=== PATIENT | female | born 1985 | race Caucasian/White ===

== ENCOUNTER 2018-12-18 10:43 | Outpatient (CLI) | payer OTHER, SELFPAY ==
[2018-12-18 11:12] LABS: HCT 41.5 % (36.0-46.0); HGB 14.5 g/dL (12.0-15.5); Mean Corp. HGB Concentration 34.9 g/dL (32.0-36.0); Mean Corpuscular Hemoglobin 30.9 pg (27.0-33.0); Mean Corpuscular Volume 88.5 fL (80-95); Mean Platelet Volume 9.1 fL (8.0-11.0); Platelet Count 295 x1000/uL (130-400); RBC 4.69 m/cumm (4.00-5.20); RBC Distribution Width 11.8 % (11.7-14.6); White Blood Cell Count 8.25 k/cumm (4.4-10.8)
[2018-12-18 12:10] LABS: ALT 85 U/L (12-78); AST 35 U/L (15-37); Albumin 3.9 g/dL (3.4-5.0); Alkaline Phosphatase 74 U/L (46-116); Anion Gap 14.3 mmol/L (3-11); BUN 11 mg/dL (7-18); Bilirubin, Total 0.3 mg/dL (0.2-1.0); CO2 25.7 mmol/L (21.0-32.0); CREATININE 0.75 mg/dL (0.55-1.02); Calcium 9.3 mg/dL (8.5-10.1); Chloride 102 mmol/L (98-107); Glucose 89 mg/dL (70-100); Potassium 4.4 mmol/L (3.5-5.1); Sodium 142 mmol/L (136-145); Total Protein 7.2 g/dL (6.4-8.2)
== END 2018-12-18 11:03 ==
PROVIDERS: PCP Nurse Practitioner; Visit Provider Nurse Practitioner
DX: L29.9 Pruritus, unspecified (principal)
CPT/HCPCS: 36415; 80053; 85027; 84443

== ENCOUNTER 2019-01-01 13:23 | Outpatient (CLI) | payer OTHER, SELFPAY ==
[2019-01-01 14:55] LABS: ALT 39 U/L (12-78); AST 8 U/L (15-37); Albumin 3.6 g/dL (3.4-5.0); Alkaline Phosphatase 75 U/L (46-116); Bilirubin, Direct 0.06 mg/dL (0.00-0.20); Bilirubin, Total 0.2 mg/dL (0.2-1.0); Total Protein 7.1 g/dL (6.4-8.2)
== END 2019-01-01 13:43 ==
PROVIDERS: PCP Nurse Practitioner; Visit Provider Nurse Practitioner
DX: R74.0 Nonspecific elevation of levels of transaminase and lactic acid dehydrogenase [LDH] (principal)
CPT/HCPCS: 36415; 80076

== ENCOUNTER 2020-02-11 11:25 | Emergency (ER) | payer OTHER, SELFPAY ==
[2020-02-11 11:29] VITALS: BP 166/92; PULSE 109; TEMP 36.2; O2SAT 98
--- NOTE | 2020-02-11 11:30 | DI.RAD_ITS ---
EXAM: XR ANKLE RT COMPLETE and XR tib/fib RT CLINICAL HISTORY: pain, swollen, inverted ankle yesterday. TECHNIQUE: 2D digital imaging was performed. COMPARISON: No previous for comparison. FINDINGS: BONES: There is a minimally displaced fracture of the posterior malleolus. On the AP view of the tib ia and fibula, there is a fracture seen through the cortex of the distal metaphysis medially extendin g longitudinally and concerning for medial malleolar fracture into the ankle mortise. JOINTS: The ankle mortise is normally aligned. SOFT TISSUE: Soft tissue swelling about the ankle. IMPRESSION: Distal tibial fractures with associated soft tissue swelling. A CT scan of the right ankle should be considered for further characterization of the fractures. The findings were discussed with the emergency department on the date of the examination. DATA REPOSITORY: RADIATION DOSE DELIVERED:
--- NOTE | 2020-02-11 11:43 | ED.GENADUL_ITS ---
Discharge Plan Disposition Patient Disposition: HOME Condition: Stable Discharge Details Chief Complaint: Orthopedic Clinical Impression: Bimalleolar fracture of right ankle Primary Care Provider: Diane Monsalve ED Provider: Zack Ness Home Meds and New Rx's Prescriptions: Continued mometasone [Elocon] 0.1 % cream 1 applic TP DAILY RF: 0 sertraline 100 mg tablet 100 mg PO DAILY Qty: 90 RF: 3 ibuprofen 200 mg Tablet 600 mg PO Q6H PRNRF: 0 Discharge Instructions Instructions: Ankle Fracture (DC) Additional Instructions: Please take ibuprofen over the counter. Take 600mg by mouth every 6 hours as needed for pain. Please take acetaminophen (tylenol) - 650mg every 6 hours by mouth as needed for pain. Keep orthopedic boot in place and use crutches. No weightbearing on right ankle until cleared by orthopedics. Please contact orthopedics to arrange follow-up. Return to the ER for any worsening or new concerning symptoms. Referrals: [facility] [Provider Group] Discharge Data Discharge Date/Time-TO BE ENTERED AT DEPARTURE: 02/11/20 12:51 Medical Decision Making 35-year-old female here with inversion injury to her right ankle yesterday. Patient has a tender swollen right ankle with focal tenderness on palpation of her lateral malleolus. She also has some tenderness proximal fibula. Patient took ibuprofen just prior to arrival. Ice pack was applied. X-ray of the ankle was reviewed and interpreted by radiology: Posterior malleolus fracture X-ray of the tib-fib was reviewed and interpreted by radiology: Posterior and medial malleolar fracture I called and spoke with on-call orthopedics, Dr. Javier, he recommends orthopedic boot, crutches, nonweightbearing and outpatient follow-up with orthopedics. Results and plan discussed with patient. Usual customary discharge instructions otherwise reviewed with the patient. HPI General Mode of arrival: ambulatory . Date/Time Provider Initiated Documentation: 02/11/20 11:38 . Limitations to Documentation: no limitations . Information obtained by: patient . HPI Narrative: 35-year-old female presents with chief complaint of right ankle pain. Patient notes yesterday she was walking her dog and twisted her ankle in a ditch. Patient notes she inverted her ankle. She has moderate pain that is worse with ambulation. She has associated swelling of the ankle. She also notes some pain proximal lower leg. No other injury. No prior fracture of the ankle. Related Data Home Medications Medication Instructions Recorded Confirmed mometasone 0.1 % topical cream 1 applic TP DAILY 03/16/18 02/19/20 sertraline 100 mg tablet 100 mg PO DAILY #90 tab 12/14/19 02/19/20 ibuprofen 600 mg PO Q6H PRN 02/11/20 02/19/20 Previous Rx's Medication Instructions Recorded sertraline 100 mg tablet 100 mg PO DAILY #90 tab 12/14/19 Allergies Allergy/AdvReac Type Severity Reaction Status Date / Time No Known Allergies Allergy Verified 02/19/20 10:09 General Stated Complaint: Orthopedic JANEL: 4 Review of Systems Musculoskeletal Musculoskeletal: Reports as per HPI Integumentary/Breasts Skin/Breast: Reports other (No laceration) Neurologic Neurologic: Reports other (No numbness or tingling) [facility] Medical History (Updated 02/19/20 @ 10:10 by Argentina Kilgore RN) Anxiety Depression (Chronic 01/03/14) 01/2014: PHQ-9 11, very difficult Hidradenitis suppurativa (Acute) Tobacco use disorder (Chronic 12/09/11) pt quit on 12/22/19 Family History Father Cystic fibrosis carrier Sister Cystic fibrosis carrier Social History Smoking/Tobacco Use Status: Former Tobacco Use Quit Date: 05/13/18 Tobacco: How many years used: 11 Alcohol Intake: current Alcohol Intake frequency: a few times a month Drug use: Daily Substance use type: marijuana Adopted: No Household members: significant other Housing: house Number of Children: 0 Communication Needs: None Do you need help understanding health information?: Rarely current occupation: [employer] Pets and animals: Yes Pets and animals: cat(s) What is your relationship status?: living with partner Panel score (0-1 are the most socially isolated patients): 1 What type of physical activity do you participate in: none and walking Duration: < 15 minutes/day Frequency: 3-4 times per week Seatbelt use: always Helmet use: Yes Drive intox or ride w/intox non emergency services ambulance driver: No Water heater temp set <120 deg: Yes Working smoke detector in home: Yes Fire extinguisher in home: Yes Carbon monox detector in home: Yes Firearms in home: Yes Firearms unloaded and locked: No Do you feel safe at home: Yes Do you feel safe in your relationship?: Yes Exam Const General: cooperative and healthy appearing Orientation: alert and awake Cardio Rate: regular rate Rhythm: regular rhythm Pulses: dorsalis pedis present on the right 2+ Extrem Right lower extremity: lower leg Details: tenderness Location: of the proximal fibula; no deformity and ankle Details: tenderness Location: of the lateral malleolus, of the medial malleolus, anterolaterally and posteriorly, swelling Details: laterally and abnormal ROM Details: pain with active ROM Details: with plantar flexion, with dorsiflexion and with inversion; no lacerations Course Vital Signs Vital signs: Vital Signs Temperature 36.2 C L 02/11/20 11:29 Pulse 109 H 02/11/20 11:29 Blood Pressure 166/92 H 02/11/20 11:29 Pulse Oximetry 98 02/11/20 11:29 Temperature 36.2 C L 02/11/20 11:29 Temperature Source Temporal Artery Scan 02/11/20 11:29 Pulse 109 H 02/11/20 11:29 Respiratory Effort Non-Labored 02/11/20 11:32 Blood Pressure 166/92 H 02/11/20 11:29 Blood Pressure Position Sitting 02/11/20 11:29 Pulse Oximetry 98 02/11/20 11:29 Oxygen Delivery Method Room Air 02/11/20 11:29 Oxygen Flow Rate 0 02/11/20 11:29 Pain Level 8 02/11/20 11:34
[2020-02-11 12:45] VITALS: BP 175/91; PULSE 92; RESP 18; TEMP 36.7; O2SAT 99
== END 2020-02-11 12:51 | disposition home or self-care (01) ==
PROVIDERS: Emergency Provider Student in an Organized Health Care Education/Training Program; PCP Nurse Practitioner
DX: S82.841A Displaced bimalleolar fracture of right lower leg, initial encounter for closed fracture (principal); W17.2XXA Fall into hole, initial encounter; Y93.K1 Activity, walking an animal
CPT/HCPCS: 99284; 73590; 73610; L4361

== ENCOUNTER 2020-02-19 10:17 | Outpatient (CLI) | payer OTHER, SELFPAY ==
--- NOTE | 2020-02-19 10:15 | DI.RAD_ITS ---
EXAM: XR ANKLE RT COMPLETE CLINICAL HISTORY: f/u fracture TECHNIQUE: 2D digital imaging was performed. COMPARISON: CR XR ANKLE RT COMPLETE from 02/11/2020 FINDINGS: There is no change in the alignment of the intra-articular fracture the distal tibia. There is slig ht separation at the articular surface. Ankle mortise is not widened. No talar dome defect or dista l fibular fracture is seen. IMPRESSION: Stable appearance of distal tibial intra-articular fracture.
== END 2020-02-19 10:37 ==
PROVIDERS: PCP Nurse Practitioner; Referring Provider Nurse Practitioner; Visit Provider Orthopaedic Surgery
DX: S82.301A Unspecified fracture of lower end of right tibia, initial encounter for closed fracture (principal)
CPT/HCPCS: 73610

== ENCOUNTER 2020-02-26 11:02 | Outpatient (CLI) | payer OTHER, SELFPAY ==
--- NOTE | 2020-02-26 10:00 | DI.RAD_ITS ---
EXAM: XR ANKLE RT COMPLETE CLINICAL HISTORY: R ankle fx TECHNIQUE: COMPARISON: CR XR ANKLE RT COMPLETE from 02/19/2020 FINDINGS: Three views were obtained previously described posterior malleolar fracture again noted, no gross int erval change in alignment comparison with examination of February 18. The ankle mortise appears well maintained. IMPRESSION: RADIATION DOSE DELIVERED: Total DLP
== END 2020-02-26 11:22 ==
PROVIDERS: PCP Nurse Practitioner; Referring Provider Nurse Practitioner; Visit Provider Physician Assistant
DX: S82.891A Other fracture of right lower leg, initial encounter for closed fracture (principal)
CPT/HCPCS: 73610

== ENCOUNTER 2020-03-25 10:45 | Outpatient (CLI) | payer OTHER, SELFPAY ==
--- NOTE | 2020-03-25 09:54 | DI.RAD_ITS ---
EXAM: XR ANKLE RT COMPLETE CLINICAL HISTORY: follow up fracture. TECHNIQUE: 2D digital imaging was performed. COMPARISON: CR XR ANKLE RT COMPLETE from 02/26/2020 FINDINGS: BONES: There has been no change in alignment of the posterior malleolar fracture. No new fracture is identified. No bony destructive lesion is seen. JOINTS: The ankle mortise is normally aligned. SOFT TISSUE: Normal. IMPRESSION: Stable posterior malleolar fracture. DATA REPOSITORY: RADIATION DOSE DELIVERED:
== END 2020-03-25 11:05 ==
PROVIDERS: PCP Nurse Practitioner; Referring Provider Nurse Practitioner; Visit Provider Physician Assistant Surgical
DX: S82.891A Other fracture of right lower leg, initial encounter for closed fracture (principal)
CPT/HCPCS: 73610

== ENCOUNTER 2020-04-22 11:50 | Outpatient (CLI) | payer OTHER, SELFPAY ==
--- NOTE | 2020-04-22 09:15 | DI.RAD_ITS ---
EXAM: XR ANKLE RT COMPLETE CLINICAL HISTORY: s/p right ankle fracture TECHNIQUE: 2D digital imaging was performed. COMPARISON: CR XR ANKLE RT COMPLETE from 03/25/2020 FINDINGS: There has been no change in the alignment of the fracture through the posterior malleolus. Some soft tissue swelling remains present. There is mild disuse osteopenia.
== END 2020-04-22 12:10 ==
PROVIDERS: PCP Nurse Practitioner; Referring Provider Nurse Practitioner; Visit Provider Physician Assistant
DX: S82.891A Other fracture of right lower leg, initial encounter for closed fracture (principal)
CPT/HCPCS: 73610

== ENCOUNTER 2020-05-20 11:23 | Outpatient (CLI) | payer OTHER, SELFPAY ==
--- NOTE | 2020-05-20 11:00 | DI.RAD_ITS ---
EXAM: XR ANKLE RT COMPLETE CLINICAL HISTORY: f/u. TECHNIQUE: 2D digital imaging was performed. COMPARISON: CR XR ANKLE RT COMPLETE from 04/22/2020 FINDINGS: BONES: There has been no change in alignment of the posterior malleolar fracture. The fracture line is still well visualized. No new fracture or dislocation is present. No bony destructive lesion is seen. JOINTS: The ankle mortise is normally aligned. SOFT TISSUE: There has been a decrease in the soft tissue swelling of the ankle. IMPRESSION: Stable posterior malleolar fracture. DATA REPOSITORY: RADIATION DOSE DELIVERED:
== END 2020-05-20 11:43 ==
PROVIDERS: PCP Nurse Practitioner; Referring Provider Nurse Practitioner; Visit Provider Orthopaedic Surgery
DX: S82.891A Other fracture of right lower leg, initial encounter for closed fracture (principal)
CPT/HCPCS: 73610

== ENCOUNTER 2020-06-05 07:54 | Emergency (ER) | payer OTHER, SELFPAY ==
[2020-06-05 07:59] VITALS: BP 143/71; PULSE 76; RESP 17; TEMP 36.8; O2SAT 96
--- NOTE | 2020-06-05 08:06 | W.ED.GENAD ---
Discharge Plan Disposition Patient Disposition: HOME Condition: Stable Discharge Details Clinical Impression: Closed head injury without loss of consciousness Primary Care Provider: Diane Monsalve ED Provider: Quita Alvarado Home Meds and New Rx's Prescriptions: No Action mometasone [Elocon] 0.1 % cream 1 applic TP DAILY RF: 0 sertraline 100 mg tablet 100 mg PO DAILY Qty: 90 RF: 3 Discharge Instructions Instructions: Concussion (ED), Head Injury (ED) Additional Instructions: Follow up with primary care provider in 3-5 days. Return to ED sooner if any worsening or concerns. Increase oral fluids. Please take Tylenol or Ibuprofen with food every 4-6 hours as needed for pain and swelling. Stand Alone Forms: Work Release Referrals: Diane Monsalve, LENS MOLDER [Primary Care Provider] - Medical Decision Making 35-year-old female presents to the ED with chief complaint of closed head injury which occurred just prior to arrival. Patient states that she slipped on the ice while getting into her car, fell backwards hitting the back of her head on the running board. She does have a small hematoma noted to the right occipital scalp. No laceration. No palpable skull fracture. She has no loss of consciousness no vomiting no midline C-spine tenderness. She has a past medical history of anxiety, depression, hydradenitis suppurativa. She is unsure she is . According to the [place] CT head rules imaging is not necessary. There is no episodes of vomiting, no signs of basilar skull fractures, no subsection of open or depressed skull fracture GCS of 15. Patient is not on blood thinners no seizure after the injury. At this time we will do a urine dip and give her some Tylenol. Urine is negative. Patient discharged home with strict return instructions and instructions to follow-up with PCP. This text was generated using [employer] system, please disregard any oddities of phrase or misspellings. HPI General Mode of arrival: ambulatory. Date/Time Provider Initiated Documentation: 06/05/20 08:00. Limitations to Documentation: no limitations. Information obtained by: patient. HPI Narrative: 35-year-old female presents to the ED with chief complaint of closed head injury which occurred just prior to arrival. Patient states that she slipped on the ice while getting into her car, fell backwards hitting the back of her head on the running board. She does have a small hematoma noted to the right occipital scalp. No laceration. No palpable skull fracture. She has no loss of consciousness no vomiting no midline C-spine tenderness. She has a past medical history of anxiety, depression, hydradenitis suppurativa. She is unsure she is . Related Data Home Medications Medication Instructions Recorded Confirmed mometasone 0.1 % topical cream 1 applic TP DAILY 03/16/18 05/20/20 sertraline 100 mg tablet 100 mg PO DAILY #90 tab 12/14/19 05/20/20 Previous Rx's Medication Instructions Recorded sertraline 100 mg tablet 100 mg PO DAILY #90 tab 12/14/19 Allergies Allergy/AdvReac Type Severity Reaction Status Date / Time No Known Allergies Allergy Verified 06/05/20 08:07 General Stated Complaint: HeadInjury JANEL: 4 Review of Systems Narrative: Constitutional: Negative for weight loss, alert and oriented, well groomed, normal body habitus, appears comfortable. HEENT: Denies blurry vision, nasal discharge, sore throat, trouble swallowing. Close head injury posterior occipital scalp. Chest: Denies chest pain, palpitations, irregular rhythm, hypertension. Respiratory: Denies Shortness of breath, cough, hemoptysis. GI: Denies abdominal pain, nausea, vomiting, diarrhea, constipation. : Denies dysuria, hematuria, flank pain, rectal bleeding. Neuro: Denies dizziness, blurry vision, weakness, syncope, or facial numbness. Hematologic: Denies easy bruising, intolerance to heat or cold, hair loss. [facility] Medical History (Updated 06/05/20 @ 08:29 by Quita Alvarado) Anxiety Depression (01/03/14) 01/2014: PHQ-9 11, very difficult Hidradenitis suppurativa Tobacco use disorder (12/09/11) pt quit on 12/22/19 Family History Father Cystic fibrosis carrier Sister Cystic fibrosis carrier Social History Smoking/Tobacco Use Status: Former Tobacco Use Quit Date: 05/13/18 Tobacco: How many years used: 11 Smoking risk assessment performed?: Yes Alcohol Intake: current Alcohol Intake frequency: a few times a month Drug use: Daily Substance use type: marijuana Adopted: No Household members: significant other Housing: house Number of Children: 0 Communication Needs: None Do you need help understanding health information?: Rarely current occupation: [employer] Pets and animals: Yes Pets and animals: cat(s) What is your relationship status?: living with partner Panel score (0-1 are the most socially isolated patients): 1 What type of physical activity do you participate in: none and walking Duration: < 15 minutes/day Frequency: 3-4 times per week Seatbelt use: always Helmet use: Yes Drive intox or ride w/intox hazardous materials driver: No Water heater temp set <120 deg: Yes Working smoke detector in home: Yes Fire extinguisher in home: Yes Carbon monox detector in home: Yes Firearms in home: Yes Firearms unloaded and locked: No Do you feel safe at home: Yes Do you feel safe in your relationship?: Yes Exam Narrative Exam Narrative: Constitutional: Alert and oriented x3. Appears stated age. Normal body habitus. Head: Normocephalic, small 2 cm diameter right occipital scalp hematoma noted. Eyes: Pupils PERRLA, Red reflex noted, EOM's intact. Eyelids symmetrical without lesions, discharge, or swelling. ENT: Bilateral TM's WNL, no hemotympanum bilaterally, external ear normal to inspection, no mastoid TTP, swelling, or erythema, Nasal turbinates WNL, no septal hematoma, no nasal discharge. Normal dentition, Posterior pharynx WNL, no exudate. Chest: RRR, Normal S1, S2, distal pulses intact. Resp: Lungs clear to auscultation bilaterally, no wheezes, rales, or rhonchi. Musculoskeletal: Normal gait, 5/5 strength to all four extremities. No midline C-spine tenderness with palpation. No crepitus no step-off. Skin: No suspicious rashes or lesions. Capillary refill less than 2 sec. Neurologic: Cranial nerves II-XII intact. Alert and oriented x 3. DTR's intact. Hematologic/Lymphatic: No ecchymosis, no lymphadenopathy. Course Vital Signs Vital signs: Vital Signs Temperature 36.8 C 06/05/20 07:59 Pulse 76 06/05/20 07:59 Respiratory Rate 17 06/05/20 07:59 Blood Pressure 143/71 H 06/05/20 07:59 Pulse Oximetry 96 06/05/20 07:59 Temperature 36.8 C 06/05/20 07:59 Temperature Source Temporal Artery Scan 06/05/20 07:59 Pulse 76 06/05/20 07:59 Respiratory Rate 17 06/05/20 07:59 Respiratory Effort Non-Labored 06/05/20 08:04 Respiratory Depth Normal 06/05/20 08:04 Respiratory Pattern Normal 06/05/20 08:04 Blood Pressure 143/71 H 06/05/20 07:59 Blood Pressure Position Sitting 06/05/20 07:59 Pulse Oximetry 96 06/05/20 07:59 Oxygen Delivery Method Room Air 06/05/20 07:59 Oxygen Flow Rate 0 06/05/20 07:59 Pain Level 7 06/05/20 07:59
[2020-06-05] MEDS: Acetaminophen 500 MG TAB PO (08:14)
[2020-06-05] MEDS: Ondansetron O.D.T. 4 MG TABEF PO (08:15)
== END 2020-06-05 08:33 | disposition home or self-care (01) ==
PROVIDERS: Emergency Provider Registered Nurse Emergency; PCP Nurse Practitioner
DX: S06.0X0A Concussion without loss of consciousness, initial encounter (principal); S00.03XA Contusion of scalp, initial encounter; V47.4XXA Person boarding or alighting a car injured in collision with fixed or stationary object, initial encounter; W00.0XXA Fall on same level due to ice and snow, initial encounter
CPT/HCPCS: 81025; 99283

== ENCOUNTER 2020-08-28 02:55 | Outpatient (CLI) | payer OTHER, SELFPAY ==
[2020-08-29 14:49] LABS: COVID-19 RT-PCR UVMMC Result Negative (Negative)
== END 2020-08-28 02:56 | disposition home or self-care (01) ==
LOC: LBO 02:56
PROVIDERS: PCP Nurse Practitioner; Visit Provider Nurse Practitioner
DX: Z20.822 Contact with and (suspected) exposure to COVID-19 (principal)
CPT/HCPCS: U0003

== ENCOUNTER 2020-10-09 02:09 | Outpatient (CLI) | payer OTHER, SELFPAY ==
[2020-10-09 09:12] LABS: HCT 42.1 % (36.0-46.0); HGB 14.6 g/dL (11.2-15.7); MCHC 34.7 % (32.0-36.0); MCV 89.4 fL (80-95); MPV 9.1 fL (8.0-11.0); Platelet Count 308 10^3/uL (130-400); RBC 4.71 10^6/uL (3.93-5.22); RDW 11.4 % (11.7-14.6); WBC 8.49 10^3/uL (4.4-10.8)
[2020-10-09 09:55] LABS: ALT 58 U/L (14-59); AST 25 U/L (15-37); Alkaline Phosphatase 82 U/L (46-116); BUN 15 mg/dL (7-18); Bilirubin, Total 0.2 mg/dL (0.2-1.0); CREATININE 0.8 mg/dL (0.55-1.02); Calcium 9.1 mg/dL (8.5-10.1); Calculated LDL 146 mg/dL (<100); Chloride 102 mmol/L (98-107); Cholesterol 207 mg/dL (<200); Glucose 107 mg/dL (74-106); HDL Cholesterol 43 mg/dL (40-60); Potassium 4.7 mmol/L (3.5-5.1); Sodium 142 mmol/L (136-145); Total Protein 7.6 g/dL (6.4-8.2); Triglyceride 92 mg/dL (<150)
[2020-10-10 09:31] LABS: HBs Antibody, Quant 7.5 mIU/mL (See Note); Hepatitis B Surface Ab Negative (See Note)
[2020-10-10 10:15] LABS: HIV-1/2 Ag & Ab Screen Negative (Negative)
[2020-10-10 10:33] LABS: Hepatitis C Ab w Rflx HCV PCR Negative (Negative)
== END 2020-10-09 02:10 | disposition home or self-care (01) ==
LOC: LBO 02:09
PROVIDERS: PCP Nurse Practitioner; Visit Provider Nurse Practitioner
DX: F33.9 Major depressive disorder, recurrent, unspecified (principal); Z13.220 Encounter for screening for lipoid disorders; Z11.59 Encounter for screening for other viral diseases; Z11.4 Encounter for screening for human immunodeficiency virus [HIV]; Z00.00 Encounter for general adult medical examination without abnormal findings
CPT/HCPCS: 36415; 80053; 80061; 85027; 86706; 86803; 87389

== ENCOUNTER 2020-10-14 12:51 | Outpatient (REF) | payer OTHER, SELFPAY ==
--- NOTE | 2020-10-14 11:45 | PAPFT_PTH ---
PATIENT: Trina Chris LOC: [facility] U#:[id number] AGE/SX: 35/F ROOM: RE10/14/[address]: EDISON Armendariz : 1985 BED: DIS: 10/14/2020 SPEC #: [id number] RECD: 10/14/20 13:11 STATUS: TREE REQ #: [id number] REGGIE: 10/14/20 11:[address]: Cheyanne Salazar DEPT: [facility] Cytology RECD BY: Shani Mead ENTERED: 10/14/20 13:12 SP TYPE: PAPFT OTHR DR: Diane Monsalve APRN Tissues: 1 - CX/ENDOCX FOR PAP SMEARS Procedures: PAP THIN PREP/UVM Screening HPV DNA PROBE Comments: [id number]
== END 2020-10-14 12:52 | disposition home or self-care (01) ==
LOC: LBN 12:51
PROVIDERS: PCP Nurse Practitioner; Visit Provider Nurse Practitioner Family
DX: Z12.4 Encounter for screening for malignant neoplasm of cervix (principal); Z11.51 Encounter for screening for human papillomavirus (HPV)
CPT/HCPCS: 88142; 87624

== ENCOUNTER 2020-11-03 09:02 | Outpatient (CLI) | payer OTHER, SELFPAY ==
[2020-11-04 11:26] LABS: COVID-19 RT-PCR UVMMC Result Positive (Negative)
== END 2020-11-03 09:03 | disposition home or self-care (01) ==
LOC: LBO 09:02
PROVIDERS: PCP Nurse Practitioner; Visit Provider Nurse Practitioner
DX: Z20.822 Contact with and (suspected) exposure to COVID-19 (principal)
CPT/HCPCS: U0003

== ENCOUNTER 2021-04-06 15:22 | Outpatient (CLI) | payer OTHER, SELFPAY ==
[2021-04-06 16:21] LABS: HCG Quant, Pregnancy 4670 mIU/mL (1-3)
[2021-04-06 16:42] LABS: Hemoglobin A1C 5.3 % (<5.7)
[2021-04-06 17:48] LABS: Anion Gap 7.5 mmol/L (3-11); BUN 10 mg/dL (7-18); CO2 29.5 mmol/L (21.0-32.0); CREATININE 0.6 mg/dL (0.55-1.02); Calcium 9.3 mg/dL (8.5-10.1); Chloride 103 mmol/L (98-107); Glucose 68 mg/dL (74-106); Potassium 4.2 mmol/L (3.5-5.1); Sodium 140 mmol/L (136-145)
== END 2021-04-06 15:23 | disposition home or self-care (01) ==
LOC: LBO 15:23
PROVIDERS: PCP Nurse Practitioner; Visit Provider Obstetrics & Gynecology Gynecology
DX: O03.9 Complete or unspecified spontaneous abortion without complication; R79.9 Abnormal finding of blood chemistry, unspecified
CPT/HCPCS: 36415; 80048; 86900; 86901; 83036; 84702

== ENCOUNTER 2021-04-23 12:21 | Outpatient (CLI) | payer OTHER, SELFPAY ==
[2021-04-23 13:31] LABS: HCG Quant, Pregnancy 282 mIU/mL (1-3)
== END 2021-04-23 12:22 | disposition home or self-care (01) ==
LOC: LBO 12:21
PROVIDERS: PCP Nurse Practitioner; Visit Provider Obstetrics & Gynecology
DX: O03.9 Complete or unspecified spontaneous abortion without complication (principal)
CPT/HCPCS: 36415; 84702

== ENCOUNTER 2021-04-30 02:07 | Outpatient (CLI) | payer OTHER, SELFPAY ==
[2021-04-30 08:38] LABS: HCG Quant, Pregnancy 71 mIU/mL (1-3)
== END 2021-04-30 02:08 | disposition home or self-care (01) ==
LOC: LBO 02:07
PROVIDERS: PCP Nurse Practitioner; Visit Provider Obstetrics & Gynecology
DX: O03.9 Complete or unspecified spontaneous abortion without complication (principal)
CPT/HCPCS: 36415; 84702

== ENCOUNTER 2021-05-08 09:40 | Outpatient (CLI) | payer OTHER, SELFPAY ==
[2021-05-08 16:45] LABS: HCG Quant, Pregnancy 12 mIU/mL (1-3)
== END 2021-05-08 09:41 | disposition home or self-care (01) ==
LOC: LBO 09:41
PROVIDERS: PCP Nurse Practitioner; Visit Provider Obstetrics & Gynecology
DX: O03.9 Complete or unspecified spontaneous abortion without complication (principal)
CPT/HCPCS: 36415; 84702

== ENCOUNTER 2022-11-25 12:04 | Outpatient (REF) | payer OTHER, SELFPAY ==
[2022-11-25 15:39] LABS: COVID-19 PCR Negative (Negative); Influenza A PCR Negative (Negative); Influenza B PCR Negative (Negative); RSV PCR Negative (Negative)
[2022-11-25 15:47] LABS: Source Nasopharynx
== END 2022-11-25 12:05 | disposition home or self-care (01) ==
LOC: LBN 12:04
PROVIDERS: PCP Nurse Practitioner; Referring Provider Nurse Practitioner Family; Visit Provider Nurse Practitioner Family
DX: J02.9 Acute pharyngitis, unspecified (principal); R05.8 Other specified cough; R50.9 Fever, unspecified; M79.18 Myalgia, other site; Z20.822 Contact with and (suspected) exposure to COVID-19
CPT/HCPCS: 87637

== ENCOUNTER 2022-11-28 11:36 | Emergency (ER) | payer OTHER, SELFPAY ==
[2022-11-28 11:52] VITALS: BP 120/83; PULSE 93; RESP 18; TEMP 37.2; O2SAT 99
--- NOTE | 2022-11-28 12:29 | W.ED.GENAD ---
Discharge Plan Disposition Patient Disposition: Home Discharge Details Clinical Impression: Pharyngitis, URI, acute Primary Care Provider: Diane Monsalve ED Provider: Shani Yoder Home Meds and New Rx's Prescriptions: New prednisone 20 mg tablet 40 mg PO DAILY Qty: 6 0RF Continued trazodone 50 mg tablet 50 mg PO QHS PRN (Reason: sleep) Qty: 30 3RF bupropion HCl 300 mg tablet extended release 24 hr See Rx Instructions .ROUTE .COMPLEX Qty: 90 3RF Dose Instruction: TAKE ONE TABLET BY MOUTH EVERY MORNING Rx Instructions: TAKE ONE TABLET BY MOUTH EVERY MORNING sertraline 100 mg tablet 200 mg PO DAILY Qty: 180 3RF mometasone 0.1 % cream 1 applic TP DAILY Qty: 45 3RF Discharge Instructions Instructions: Pharyngitis (ED), Upper Respiratory Infection (ED) Additional Instructions: Take Tylenol as needed for pain Take the prednisone daily, you received a dose of Decadron today, do not take the prednisone until tomorrow Return earlier should you have difficulty swallowing, persistent pain, or with any new or worsening complaints Referrals: Diane Monsalve, BILLET DRILLER [Primary Care Provider] - Discharge Data Discharge Date/Time-TO BE ENTERED AT DEPARTURE: 11/28/22 12:49 Medical Decision Making Patient is alert, cooperative, no acute distress She has mild erythema to her oropharynx suspect her symptoms are related to upper respiratory infection She has already had a negative strep, flu a test Lower suspicion for mononucleosis, no abdominal tenderness, no fever, and the presence of upper respiratory symptoms We will place on steroid taper for discomfort No indication for antibiotics at this time Return precautions reviewed and patient expressed understanding Medical Records Medical records reviewed: Yes I reviewed the patient's medical records. Lab Data Lab results reviewed: Yes I reviewed the patient's lab results. HPI General Date/Time Provider Initiated Documentation: 11/28/22 12:15. HPI Narrative: This 37-year-old female presents with sore throat for the past 5 days. Was at [facility] and had strep and flu were performed with which were negative. He denies globus sensation. Denies trismus. Able to eat and drink with discomfort. States she is also had upper respiratory symptoms including cough and runny nose associated with her sore throat. The sore throat is essentially why she presents today. Denies any drooling. Related Data Home Medications Medication Instructions Recorded Confirmed trazodone 50 mg tablet 50 mg PO QHS PRN sleep #30 tabs 12/17/21 11/28/22 bupropion HCl 300 mg 24 hr tablet, See Rx Instructions .Route 07/20/22 11/28/22 extended release .COMPLEX #90 tabs mometasone 0.1 % topical cream 1 applic topical DAILY eczema both 07/20/22 11/28/22 ears #45 grams sertraline 100 mg tablet 200 mg PO DAILY #180 tabs 07/20/22 11/28/22 prednisone 20 mg tablet 40 mg PO DAILY #6 tabs 11/28/22 Previous Rx's Medication Instructions Recorded trazodone 50 mg tablet 50 mg PO QHS PRN sleep #30 tabs 12/17/21 bupropion HCl 300 mg 24 hr tablet, See Rx Instructions .Route 07/20/22 extended release .COMPLEX #90 tabs mometasone 0.1 % topical cream 1 applic topical DAILY eczema both 07/20/22 ears #45 grams sertraline 100 mg tablet 200 mg PO DAILY #180 tabs 07/20/22 prednisone 20 mg tablet 40 mg PO DAILY #6 tabs 11/28/22 Allergies Allergy/AdvReac Type Severity Reaction Status Date / Time No Known Allergies Allergy Verified 11/25/22 11:20 General Stated Complaint: Sorethroat JANEL: 4 PFSH All Active Problems (Updated 11/28/22 @ 12:32 by MYRANDA Montano) Pharyngitis (Acute) URI, acute (Acute) Miscarriage (Acute) Positive home test (Acute) SOB (shortness of breath) (Acute) Abnormal blood chemistry (Acute) Routine medical exam (Acute) Attempting to conceive (Acute) Screening for cholesterol level (Acute) Screening for viral disease (Acute) Tobacco use disorder (Chronic 12/09/11) pt quit on 12/22/19 Depression (Chronic 01/03/14) 01/2014: PHQ-9 11, very difficult Hidradenitis suppurativa (Acute) Chronic eczematous otitis externa of both ears (Acute) Eczema (Acute 07/26/13) 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) Chronic otitis externa (Chronic 07/26/13) Surveillance of contraceptive pill (Acute 08/24/11) Anxiety (Acute 03/09/13) Acute otitis externa of both ears (Acute 05/22/15) Medical History (Updated 11/28/22 @ 12:32 by MYRANDA Montano) Anxiety Family History Father Cystic fibrosis carrier Cancer Bileduct Cancer--- Sister Cystic fibrosis carrier Anxiety Depression Mother Alcohol abuse Social History Smoking/Tobacco Use Status: Former Tobacco Use Quit Date: 05/13/18 Tobacco: How many years used: 10 Smoking risk assessment performed?: Yes Alcohol Intake: current Alcohol Intake frequency: a few times a week Drug use: Daily Substance use type: marijuana Details: Several Days a week Adopted: No Caregiver/Support person: No Foster care: No Household members: significant other Housing: house Number of Children: 0 Communication Needs: None Education Level: college Do you need help understanding health information?: Rarely current occupation: [employer] Pets and animals: Yes Pets and animals: cat(s) Sexually active: Yes Do you think of yourself as: straight/heterosexual Current gender identity: female What is your relationship status?: living with partner How often do you talk on the phone with friends or family?: three or more times per week How often do you get together with friends or relatives?: twice per week How often do you attend pentecostal or druze services?: decline to answer Do you belong to any clubs or organized social groups?: no Panel score (0-1 are the most socially isolated patients): 2 What type of physical activity do you participate in: none and walking Duration: < 15 minutes/day Frequency: 3-4 times per week Neelima/Caodaism: None Special neelima needs: No Seatbelt use: always Helmet use: Yes Helmet use: always Drive intox or ride w/intox milk delivery driver: No Water heater temp set <120 deg: Yes Working smoke detector in home: Yes Fire extinguisher in home: Yes Carbon monox detector in home: Yes Firearms in home: Yes Firearms unloaded and locked: No Do you feel safe at home: Yes Do you feel safe in your relationship?: Yes Exam Narrative Exam Narrative: Uvula midline, oropharynx patent, no trismus, erythema, no tonsillar exudates, no obvious abscess, maintaining secretions Neck Other: No meningismus Resp Effort & Inspection: normal respiratory effort Course Vital Signs Vital signs: Vital Signs Temperature 37.2 C 11/28/22 11:52 Pulse 93 H 11/28/22 11:52 Respiratory Rate 18 11/28/22 11:52 Blood Pressure 120/83 11/28/22 11:52 Pulse Oximetry 99 11/28/22 11:52 Temperature 37.2 C 11/28/22 11:52 Temperature Source Oral 11/28/22 11:52 Pulse 93 H 11/28/22 11:52 Respiratory Rate 18 11/28/22 11:52 Respiratory Effort Normal, Non-Labored 11/28/22 11:55 Blood Pressure 120/83 11/28/22 11:52 Blood Pressure Position Sitting 11/28/22 11:52 Pulse Oximetry 99 11/28/22 11:52 Oxygen Delivery Method Room Air 11/28/22 11:52 Oxygen Flow Rate 0 11/28/22 11:52 Pain Level 8 11/28/22 11:52
[2022-11-28] MEDS: Dexamethasone 10 MG/ML VIAL PO (12:49)
== END 2022-11-28 12:49 | disposition home or self-care (01) ==
PROVIDERS: Emergency Provider Physician Assistant; PCP Nurse Practitioner
DX: J06.9 Acute upper respiratory infection, unspecified (principal); J02.9 Acute pharyngitis, unspecified
CPT/HCPCS: 99283; 99284; J1100

== ENCOUNTER 2022-12-21 15:36 | Outpatient (REF) | payer OTHER, SELFPAY ==
--- NOTE | 2022-12-21 15:00 | PAPFT_PTH ---
PATIENT: Trina Chris LOC: [facility] U#:[id number] AGE/SX: 37/F ROOM: RE12/21/[address]: Sofia Munoz MD : [id number] BED: DIS: 12/21/2022 SPEC #: [id number] RECD: 12/21/22 17:44 STATUS: TREE REReggie #: [id number] REGGIE: 12/21/22 15:[address]: Allison Wynn DEPT: [facility] Cytology RECD BY: Shani Mead ENTERED: 12/21/22 17:44 SP TYPE: PAPFT SIS DR: Diane Monsalve APRN Tissues: 1 - CX/ENDOCX FOR PAP SMEARS Procedures: PAP THIN PREP/UVM Screening HPV DNA PROBE Comments: [id number] (CHLAMYDIA/GC)
[2022-12-22 16:24] LABS: Chlamydia Result Negative (Negative); GC Result Negative (Negative)
== END 2022-12-21 15:37 | disposition home or self-care (01) ==
LOC: LBN 15:36
PROVIDERS: Advanced Practice Midwife; PCP Nurse Practitioner; Visit Provider Obstetrics & Gynecology
DX: Z11.3 Encounter for screening for infections with a predominantly sexual mode of transmission (principal); Z12.4 Encounter for screening for malignant neoplasm of cervix; Z11.51 Encounter for screening for human papillomavirus (HPV)
CPT/HCPCS: 87491; 87591; 88142; 87624

== ENCOUNTER 2022-12-29 02:36 | Outpatient (CLI) | payer OTHER, SELFPAY ==
[2022-12-31 10:14] LABS: Syphilis Serology (RPR) Negative (Negative)
[2022-12-31 11:09] LABS: Hepatitis C Ab w Rflx HCV PCR Negative (Negative)
[2022-12-31 11:11] LABS: HIV-1/2 Ag & Ab Screen Negative (Negative)
== END 2022-12-29 02:37 | disposition home or self-care (01) ==
LOC: LBO 02:36
PROVIDERS: PCP Nurse Practitioner; Visit Provider Obstetrics & Gynecology
DX: Z11.3 Encounter for screening for infections with a predominantly sexual mode of transmission (principal)
CPT/HCPCS: 36415; 86803; 87389; 86592

== ENCOUNTER 2023-06-17 13:16 | Emergency (ER) | payer OTHER, SELFPAY ==
[2023-06-17 13:18] VITALS: BP 174/108; PULSE 89; RESP 22; TEMP 36.6; O2SAT 98
--- NOTE | 2023-06-17 13:45 | DI.CT_ITS ---
Exam(s) CT NECK W EXAM: CT NECK W CLINICAL HISTORY: left neck swelling, sudden onset, tender. TECHNIQUE: Imaging Protocol: Axial computed tomography images with coronal and sagittal reformatted images were created and reviewed CONTRAST MATERIAL: Intravenous: Omnipaque 350 Contrast volume:100 ml contrast COMPARISON: No exams were available for comparison FINDINGS: Parotids: Marked swelling of the left parotid gland. No evidence of abscess. No calcifications in t he parotid gland or along the course of the parotid duct. Submandibular glands: Normal. Thyroid gland: Normal. Lymph nodes: Mildly enlarged, reactive lymph nodes on the left side of the neck.. Carotids arteries: No significant stenosis or dissection. Vertebral arteries: No significant stenosis or dissection. Soft tissues: The floor the mouth is unremarkable. The tonsils and adenoids are unremarkable. The epiglottis and vocal cords are within normal limits. Lungs: Images through both lung apices are unremarkable. Bones: Unremarkable. Visualized portions of the brain and orbits: Unremarkable. Sinuses and mastoids: Clear. IMPRESSION: Diffusely inflamed parotid gland without focal abscess or calcification. Findings called to Dr. Ness of the emergency department. RADIATION DOSE DELIVERED: Total DLP DATA REPOSITORY: All CT scans at this facility are submitted to the National Radiology Data Registry (NRDR) Dose Index Registry (DIR) with the [employer] (ACR). RADIATION OPTIMIZATION: All CT scans at this facility use at least one of these dose optimization te chniques: automated exposure control; mA and/or kV adjustment per patient size (includes targeted exa ms where dose is matched to clinical indication); or iterative reconstruction.
--- NOTE | 2023-06-17 14:06 | ED.GENADUL_ITS ---
Discharge Plan Disposition Patient Disposition: Home Condition: Stable Discharge Details Clinical Impression: Acute parotitis Primary Care Provider: Diane Monsalve ED Provider: Zack Ness Home Meds and New Rx's Prescriptions: New amoxicillin-pot clavulanate 875-125 mg tablet 1 tab PO BID Qty: 27 0RF Continued trazodone 50 mg tablet 50 mg PO QHS PRN (Reason: sleep) Qty: 30 3RF mometasone 0.1 % cream 1 applic TP DAILY Qty: 45 3RF triamcinolone acetonide 0.1 % cream 1 applic topical BID Qty: 30 4RF betamethasone dipropionate 0.05 % cream 1 applic topical DAILY PRN (Reason: skin irritation) Qty: 45 1RF bupropion HCl 300 mg tablet extended release 24 hr See Rx Instructions .ROUTE .COMPLEX Qty: 90 3RF Dose Instruction: TAKE ONE TABLET BY MOUTH EVERY MORNING Rx Instructions: TAKE ONE TABLET BY MOUTH EVERY MORNING sertraline 100 mg tablet 200 mg PO DAILY Qty: 180 3RF Discharge Instructions Instructions: Sialoadenitis (ED) Additional Instructions: Please use sour candies 6 times a day. Take antibiotic as prescribed. Apply warm compresses regularly to your face. If symptoms do not improve as expected over the next week, please follow-up with shearer screen measurer and trimmer. Return to the ER immediately for any worsening or new concerning symptoms. Please note your blood pressure was elevated today. Please follow-up with your primary care physician for recheck of blood pressure. If blood pressure remains elevated, additional diagnostic testing and treatment may be necessary. Referrals: [facility] [Provider Group] Diane Monsalve NP [Primary Care Provider] - Medical Decision Making 1412 --38-year-old female presents with sudden onset of left neck swelling. Airway intact. No purulent discharge. No overlying erythema. Exam consistent with parotitis although timing seems atypical. Plan to obtain CT of the neck to assess for deep space infection versus vascular etiology versus parotid inflammation. I will give secretagogues to see if symptoms improve. 1500 --CT of the neck was interpreted by radiology: Diffusely inflamed parotid gland without focal abscess or calcification. Labs reviewed and nondiagnostic. No leukocytosis. Patient reassessed and has not had any worsening of swelling. She does continue to have pain. I will give acetaminophen IV and ibuprofen. -- Case discussed with ENT Dr. Lopez: Discussed ED presentation and course including diagnostics. He recommends treatment with sour candy secretagogue, Augmentin, and warm compresses. He recommends discharge and outpatient follow- up as necessary. Discharge plan discussed with the patient. Usual and customary discharge instructions reviewed. Lab Data Lab results reviewed: Yes I reviewed the patient's lab results. Labs: Laboratory Tests Range/Units 06/17/23 14:07 WBC (4.4-10.8) 10^3/uL 9.44 RBC (3.93-5.22) 10^6/uL 4.70 Hgb (11.2-15.7) g/dL 14.2 Hct (36.0-46.0) % 41.6 MCV (80-95) fL 89 MCH (27.0-33.0) pg 30.2 MCHC (32.0-36.0) % 34.1 RDW (11.7-14.6) % 11.6 L Plt Count (130-400) 10^3/uL 305 MPV (8.0-11.0) fL 8.8 Immature Gran % 0.3 Neutrophils % 69.1 Lymphocytes % 23.8 Monocytes % 5.0 Eosinophils % 1.4 Basophils % 0.4 Nucleated RBC % (0.0-0.3) % 0.0 Absolute Neutrophils (1.2-6.7) 10^3/uL 6.52 Absolute Lymphocytes (1.2-3.4) 10^3/uL 2.25 Absolute Monocytes (0.1-0.8) 10^3/uL 0.47 Absolute Eosinophils (0.0-0.7) 10^3/uL 0.13 Absolute Basophils (0.0-0.2) 10^3/uL 0.04 Sodium (136-145) mmol/L 139 Potassium (3.5-5.1) mmol/L 3.9 Chloride (98-107) mmol/L 103 Carbon Dioxide (21.0-32.0) mmol/L 26.6 Anion Gap (3-11) mmol/L 9.4 BUN (7-18) mg/dL 15 Creatinine (0.55-1.02) mg/dL 0.8 Est GFR (CKD-EPI 2020) (mL/min/1.73m2) 97.87 Glucose (74-106) mg/dL 95 Calcium (8.5-10.1) mg/dL 9.2 Total Bilirubin (0.2-1.0) mg/dL 0.3 AST (15-37) U/L 17 ALT (14-59) U/L 29 Alkaline Phosphatase (46-116) U/L 70 Total Protein (6.4-8.2) g/dL 7.5 Albumin (3.4-5.0) g/dL 3.8 HPI General Mode of arrival: ambulatory . Date/Time Provider Initiated Documentation: 06/17/23 13:26 . Limitations to Documentation: no limitations . Information obtained by: patient . HPI Narrative: 38-year-old female presents with chief complaint of left neck swelling. Patient notes she was eating lunch today and had sudden onset of left lateral face/upper neck swelling. She does not feel she had any swelling prior to this sudden onset. She states while she was eating she felt as though there was a tingling inside of her face similar to when she eats sour food and then developed the severe swelling. Food she was consuming at the time was chicken and spinach sandwich. No other swelling, rash or shortness of breath. Patient does note recent discomfort in her left ear over the past week. Related Data Home Medications Medication Instructions Recorded Confirmed trazodone 50 mg tablet 50 mg PO QHS PRN sleep #30 tabs 12/17/21 06/17/23 mometasone 0.1 % topical cream 1 applic topical DAILY eczema both 07/20/22 06/17/23 ears #45 grams triamcinolone acetonide 0.1 % 1 applic topical BID #30 grams 04/22/23 06/17/23 topical cream betamethasone dipropionate 0.05 % 1 applic topical DAILY PRN skin 06/13/23 06/17/23 topical cream irritation #45 grams bupropion HCl 300 mg 24 hr tablet, See Rx Instructions .Route 06/13/23 06/17/23 extended release .COMPLEX #90 tabs sertraline 100 mg tablet 200 mg (2 x 100 mg) PO DAILY #180 06/13/23 06/17/23 tabs amoxicillin 875 mg-potassium 1 tab PO BID #27 tabs 06/17/23 clavulanate 125 mg tablet Previous Rx's Medication Instructions Recorded trazodone 50 mg tablet 50 mg PO QHS PRN sleep #30 tabs 12/17/21 mometasone 0.1 % topical cream 1 applic topical DAILY eczema both 07/20/22 ears #45 grams triamcinolone acetonide 0.1 % 1 applic topical BID #30 grams 04/22/23 topical cream betamethasone dipropionate 0.05 % 1 applic topical DAILY PRN skin 06/13/23 topical cream irritation #45 grams bupropion HCl 300 mg 24 hr tablet, See Rx Instructions .Route 06/13/23 extended release .COMPLEX #90 tabs sertraline 100 mg tablet 200 mg (2 x 100 mg) PO DAILY #180 06/13/23 tabs amoxicillin 875 mg-potassium 1 tab PO BID #27 tabs 06/17/23 clavulanate 125 mg tablet Allergies Allergy/AdvReac Type Severity Reaction Status Date / Time No Known Allergies Allergy Verified 06/17/23 13:22 General Stated Complaint: FacialProb JANEL: 3 Review of Systems All systems reviewed & are unremarkable except as noted in HPI and below Constitutional Constitutional: Denies fever(s) ENT Ears, Nose, Mouth, and Throat: Reports as per HPI Psychiatric Psychiatric: Reports anxiety PFSH All Active Problems (Updated 06/17/23 @ 15:46 by Zack Ness MD) Acute parotitis (Acute) Eczema of both external ears (Acute) Depression (Chronic 01/03/14) 01/2014: PHQ-9 11, very difficult 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) Anxiety (Acute 03/09/13) Medical History Pharyngitis Attempting to conceive Hidradenitis suppurativa Chronic eczematous otitis externa of both ears Tobacco use disorder (12/09/11) pt quit on 12/22/19 Family History Father Cystic fibrosis carrier Cancer Bileduct Cancer--- Sister Cystic fibrosis carrier Anxiety Depression Mother Alcohol abuse Social History Smoking/Tobacco Use Status: Current every day Tobacco Type: cigarettes Tobacco: How many years used: 10 Smoking risk assessment performed?: Yes Alcohol Intake: current Alcohol Intake frequency: a few times a week Drug use: Daily Substance use type: marijuana Details: Several Days a week Adopted: No Caregiver/Support person: No Foster care: No Household members: significant other Housing: house Number of Children: 0 Communication Needs: None Education Level: college Do you need help understanding health information?: Rarely current occupation: [employer] Pets and animals: Yes Pets and animals: cat(s) Sexually active: Yes Do you think of yourself as: straight/heterosexual Current gender identity: female What is your relationship status?: living with partner How often do you talk on the phone with friends or family?: three or more times per week How often do you get together with friends or relatives?: twice per week How often do you attend religious or latter day services?: decline to answer Do you belong to any clubs or organized social groups?: no Panel score (0-1 are the most socially isolated patients): 2 What type of physical activity do you participate in: none and walking Duration: < 15 minutes/day Frequency: 3-4 times per week Neelima/Oriental Orthodox: None Special neelima needs: No Seatbelt use: always Helmet use: Yes Helmet use: always Drive intox or ride w/intox lyft driver: No Water heater temp set <120 deg: Yes Working smoke detector in home: Yes Fire extinguisher in home: Yes Carbon monox detector in home: Yes Firearms in home: Yes Firearms unloaded and locked: No Do you feel safe at home: Yes Do you feel safe in your relationship?: Yes Additional Social history: significant other at bedside History History 1 Para 0 Hx # Term Pregnancies Multiple births Hx # Pregnancies Ectopic pregnancies AB induced Hx Number of Living Children 0 AB spontaneous 1 Exam Const General: cooperative Orientation: alert HENMT Head: atraumatic Mouth: oral mucosae normal and moist mucous membranes Teeth and gingiva: dentition normal Throat: posterior oropharynx normal and uvula midline Eyes Conjunctivae: normal conjunctivae Sclera: normal sclerae Neck Neck: full ROM, trachea midline and supple Other: Left anterior lateral upper neck swelling and tender to palpation with no erythema Resp Auscultation: clear to auscultation bilaterally, no rales, no rhonchi and no wheezes Cardio Rate: regular rate and not tachycardic Rhythm: regular rhythm Skin General skin exam: no rashes or lesions noted Neuro General: patient alert, patient awake and tone normal Psych Appearance: grossly normal Mental Status: mental status grossly normal Affect: anxious affect Course Vital Signs Vital signs: Vital Signs Temperature 36.6 C 06/17/23 13:18 Pulse 89 06/17/23 13:18 Respiratory Rate 22 06/17/23 13:18 Blood Pressure 174/108 H 06/17/23 13:18 Pulse Oximetry 98 06/17/23 13:18 Temperature 36.6 C 06/17/23 13:18 Temperature Source Skin 06/17/23 13:18 Pulse 89 06/17/23 13:18 Respiratory Rate 22 06/17/23 13:18 Respiratory Effort Normal, Non-Labored 06/17/23 13:24 Blood Pressure 174/108 H 06/17/23 13:18 Blood Pressure Position Supine 06/17/23 13:18 Pulse Oximetry 98 06/17/23 13:18 Oxygen Delivery Method Room Air 06/17/23 13:18 Oxygen Flow Rate 0 06/17/23 13:18 Pain Level 3 06/17/23 13:18 PAWSS Have you Been Recently Intoxicated or Drunk Within the Last 30 days?: No Have you Ever Experienced Previous Episodes of Alcohol Withdrawal?: No Have you ever Experienced Withdrawal Seizures?: No Have you ever Experienced Delirium Tremens(DT)s?: No Have you ever undergone Alcohol Rehabilitation Treatment (i.e, inpt ot outpatient treatment programs)?: No Have you ever Experienced Blackouts?: No Have you ever Combined Alcohol with other Downers within the last 90 days?: No Have you ever Combined Alcohol with any other Substance of Abuse during the last 90 days?: No Positive Blood Alcohol level on Presentation? [PCS.BAL]: No Evidence of Increased Autonomic Activity (i.e. HR>120, tremor, sweating, agitation, nausea)?: No Result: 0
[2023-06-17 14:12] LABS: Abs Immature Grans 0.03 10^3/uL (0.0-0.06); Absolute Basophil Count 0.04 10^3/uL (0.0-0.2); Absolute Eosinophil Count 0.13 10^3/uL (0.0-0.7); Absolute Lymphocyte Count 2.25 10^3/uL (1.2-3.4); Absolute Monocyte Count 0.47 10^3/uL (0.1-0.8); Absolute Neutrophil Count 6.52 10^3/uL (1.2-6.7); Basophils % 0.4; Eosinophils % 1.4; HCT 41.6 % (36.0-46.0); HGB 14.2 g/dL (11.2-15.7); Immature Grans % 0.3; Lymphocytes % 23.8; MCH 30.2 pg (27.0-33.0); MCHC 34.1 % (32.0-36.0); MCV 89 fL (80-95); MPV 8.8 fL (8.0-11.0); Neutrophils % 69.1; Platelet Count 305 10^3/uL (130-400); RDW 11.6 % (11.7-14.6); RDW-SD 37.2 fL; WBC 9.44 10^3/uL (4.4-10.8)
[2023-06-17] MEDS: Omnipaque 350 MG/ML 100 ML BTL IJ (14:15)
[2023-06-17] MEDS: Normal Saline - Diluent 50 ML VIAL IJ (14:16)
[2023-06-17 14:27] LABS: ALT 29 U/L (14-59); AST 17 U/L (15-37); Albumin 3.8 g/dL (3.4-5.0); Alkaline Phosphatase 70 U/L (46-116); Anion Gap 9.4 mmol/L (3-11); BUN 15 mg/dL (7-18); Bilirubin, Total 0.3 mg/dL (0.2-1.0); CO2 26.6 mmol/L (21.0-32.0); CREATININE 0.8 mg/dL (0.55-1.02); Calcium 9.2 mg/dL (8.5-10.1); Chloride 103 mmol/L (98-107); Estimated GFR 97.87 (mL/min/1.73m2); Glucose 95 mg/dL (74-106); Potassium 3.9 mmol/L (3.5-5.1); Sodium 139 mmol/L (136-145); Total Protein 7.5 g/dL (6.4-8.2)
[2023-06-17] MEDS: ACETAMINOPHEN 1,000 MG/100 ML BTL 400 MG IVPB (15:55)
[2023-06-17] MEDS: Ibuprofen 600 MG TAB PO (15:56)
== END 2023-06-17 16:10 | disposition home or self-care (01) ==
PROVIDERS: Emergency Provider Student in an Organized Health Care Education/Training Program; PCP Nurse Practitioner
DX: K11.21 Acute sialoadenitis (principal)
CPT/HCPCS: 36415; 70491; 80053; 96374; 99285; 85025; 99284; J0131; J3490

== ENCOUNTER 2023-11-07 13:09 | Outpatient (CLI) | payer OTHER, SELFPAY ==
[2023-11-07 10:56] LABS: HCG Quant, Pregnancy 141 mIU/mL (1-3)
== END 2023-11-07 13:10 | disposition home or self-care (01) ==
LOC: LBO 13:10
PROVIDERS: PCP Nurse Practitioner; Visit Provider Advanced Practice Midwife
DX: O26.851 Spotting complicating pregnancy, first trimester (principal)
CPT/HCPCS: 36415; 84702

== ENCOUNTER 2023-11-09 05:12 | Outpatient (CLI) | payer OTHER, SELFPAY ==
[2023-11-09 12:48] LABS: HCG Quant, Pregnancy 195 mIU/mL (1-3)
== END 2023-11-09 05:13 | disposition home or self-care (01) ==
LOC: LBO 05:12
PROVIDERS: PCP Nurse Practitioner; Visit Provider Advanced Practice Midwife
DX: O26.851 Spotting complicating pregnancy, first trimester (principal)
CPT/HCPCS: 36415; 84702

== ENCOUNTER 2023-11-11 02:24 | Outpatient (CLI) | payer OTHER, SELFPAY ==
[2023-11-11 12:19] LABS: Abs Immature Grans 0.02 10^3/uL (0.0-0.06); Absolute Basophil Count 0.03 10^3/uL (0.0-0.2); Absolute Eosinophil Count 0.16 10^3/uL (0.0-0.7); Absolute Lymphocyte Count 1.99 10^3/uL (1.2-3.4); Absolute Monocyte Count 0.36 10^3/uL (0.1-0.8); Absolute Neutrophil Count 5.25 10^3/uL (1.2-6.7); Basophils % 0.4 %; HCT 42.3 % (36.0-46.0); HGB 14.3 g/dL (11.2-15.7); Immature Grans % 0.3 %; Lymphocytes % 25.5 %; MCH 30.3 pg (27.0-33.0); MCHC 33.8 % (32.0-36.0); MCV 90 fL (80-95); MPV 8.5 fL (8.0-11.0); Monocytes % 4.6 %; Neutrophils % 67.2 %; Platelet Count 267 10^3/uL (130-400); RBC 4.72 10^6/uL (3.93-5.22); RDW 11.5 % (11.7-14.6); RDW-SD 37.2 fL; WBC 7.81 10^3/uL (4.4-10.8)
[2023-11-11 12:44] LABS: ALT 29 U/L (14-59); AST 12 U/L (15-37); Albumin 3.6 g/dL (3.4-5.0); Alkaline Phosphatase 55 U/L (46-116); Anion Gap 7.8 mmol/L (3-11); BUN 11 mg/dL (7-18); Bilirubin, Total 0.4 mg/dL (0.2-1.0); CO2 28.2 mmol/L (21.0-32.0); CREATININE 0.8 mg/dL (0.55-1.02); Chloride 103 mmol/L (98-107); Estimated GFR 97.87 (mL/min/1.73m2); Glucose 114 mg/dL (74-106); HCG Quant, Pregnancy 256 mIU/mL (1-3); Potassium 3.5 mmol/L (3.5-5.1); Sodium 139 mmol/L (136-145); Total Protein 7.2 g/dL (6.4-8.2)
== END 2023-11-11 02:25 | disposition home or self-care (01) ==
LOC: LBO 02:25
PROVIDERS: Obstetrics & Gynecology; PCP Nurse Practitioner; Visit Provider Advanced Practice Midwife
DX: O26.851 Spotting complicating pregnancy, first trimester (principal)
CPT/HCPCS: 36415; 80053; 84702; 85025

== ENCOUNTER 2023-11-16 05:02 | Outpatient (CLI) | payer OTHER, SELFPAY ==
[2023-11-16 12:21] LABS: HCG Quant, Pregnancy 349 mIU/mL (1-3)
== END 2023-11-16 05:03 | disposition home or self-care (01) ==
LOC: LBO 05:02
PROVIDERS: Advanced Practice Midwife; PCP Nurse Practitioner; Visit Provider Advanced Practice Midwife
DX: O26.851 Spotting complicating pregnancy, first trimester (principal)
CPT/HCPCS: 36415; 84702

== ENCOUNTER 2023-11-18 02:02 | Outpatient (CLI) | payer OTHER, SELFPAY ==
[2023-11-18 17:18] LABS: HCG Quant, Pregnancy 281 mIU/mL (1-3)
== END 2023-11-18 02:03 | disposition home or self-care (01) ==
LOC: LBO 02:03
PROVIDERS: PCP Nurse Practitioner; Visit Provider Obstetrics & Gynecology
DX: O00.90 Unspecified ectopic pregnancy without intrauterine pregnancy (principal)
CPT/HCPCS: 36415; 84702

== ENCOUNTER 2023-11-25 02:42 | Outpatient (CLI) | payer OTHER, SELFPAY ==
[2023-11-25 09:36] LABS: HCG Quant, Pregnancy 111 mIU/mL (1-3)
[2023-12-02 14:10] LABS: HCG Quant, Pregnancy 51 mIU/mL (1-3)
== END 2023-11-25 02:43 | disposition home or self-care (01) ==
LOC: LBO 02:43
PROVIDERS: PCP Nurse Practitioner; Visit Provider Obstetrics & Gynecology
DX: O26.851 Spotting complicating pregnancy, first trimester (principal); Z3A.01 Less than 8 weeks gestation of pregnancy
CPT/HCPCS: 36415; 84702

== ENCOUNTER 2023-12-02 13:52 | Outpatient (CLI) | payer OTHER, SELFPAY | END 2023-12-02 13:53 | disposition home or self-care (01) | LOC: LBO 13:55 | PROVIDERS: PCP Nurse Practitioner; Visit Provider Obstetrics & Gynecology | DX: O26.851 Spotting complicating pregnancy, first trimester (principal); Z3A.01 Less than 8 weeks gestation of pregnancy | CPT/HCPCS: 36415; 84702 ==